=== PATIENT | male | born 1990 | race Caucasian/White ===

== ENCOUNTER 2018-08-02 08:20 | Inpatient (IN) | payer MEDICAID ==
[~2018-08-02] VITALS: Ht 167.6 cm; Wt 65.8 kg
[2018-08-02] MEDS ORDERED: SODIUM CHLORIDE 0.9% 1,000 ML IV ONE (08:46)
[2018-08-02] MEDS ORDERED: ACETAMINOPHEN 325MG TABLET PO ONE (09:00)
[2018-08-02 09:17] LABS: CHLORIDE 97 mEq/L (98-107)
[2018-08-02 09:18] LABS: BASOPHILS % 1.5 % (0.0-2.0); HEMOGLOBIN. 8.8 g/dL (14.0-18.0); LYMPHOCYTES % 11.9 % (20.0-50.0); MEAN CORPUSCULAR HEMOGLOBIN 21.6 pg (28.0-32.0); MEAN CORPUSCULAR VOLUME 69.2 fL (80.0-94.0); MEAN PLATELET VOLUME 8.9 fl (7.4-10.4); MONOCYTES % 11.3 % (2.0-8.0); NEUTROPHILS % 74.3 % (40.0-76.0); PLATELET 68 x1000/uL (130-400); RED BLOOD CELL COUNT 4.05 mill/uL (4.7-6.1); RED CELL DISTRIBUTION WIDTH 17.5 % (11.6-14.6)
[2018-08-02 09:21] LABS: ETHANOL BLOOD < 10 mg/dL
[2018-08-02 09:53] LABS: PLATELET ESTIMATE DECREASED
[2018-08-02 11:56] LABS: CLARITY URINE CLOUDY (CLEAR); COLOR URINE YELLOW (YELLOW); KETONES URINE NEGATIVE (NEGATIVE); LEUKOCYTE ESTERASE URINE NEGATIVE (NEGATIVE); NITRITE URINE NEGATIVE (NEGATIVE); OCCULT BLOOD URINE NEGATIVE (NEGATIVE); PH URINE 7.5 (4.5-8.0); PROTEIN URINE TRACE (NEGATIVE); SPECIFIC GRAVITY URINE 1.006 (1.005-1.030)
[2018-08-02 12:17] LABS: *AMPHETAMINES SCREEN URINE NEGATIVE (NEGATIVE); *BARBITURATES SCREEN URINE NEGATIVE (NEGATIVE); *BENZODIAZEPINES SCREEN URINE NEGATIVE (NEGATIVE); *COCAINE SCREEN URINE NEGATIVE (NEGATIVE)
[2018-08-02 12:18] LABS: CANNABINOID URINE SCREEN NEGATIVE (NEGATIVE); METHADONE URINE SCREEN NEGATIVE (NEGATIVE); OPIATES URINE SCREEN NEGATIVE (NEGATIVE); PHENCYCLIDINE URINE SCREEN NEGATIVE (NEGATIVE)
[2018-08-02 14:45] VITALS: BP 93/57
[2018-08-02 15:00] VITALS: BP 98/45
[2018-08-02] MEDS ORDERED: LORAZEPAM 2MG/ML CPJ IV NR (15:00)
[2018-08-02] MEDS ORDERED: DIPHENHYDRAMINE 50MG/ML VIAL IV PRN (15:15)
[2018-08-02] MEDS ORDERED: LORAZEPAM 2MG/ML CPJ IV ONE (15:15)
[2018-08-02] MEDS ORDERED: LORAZEPAM 2MG/ML CPJ IV PRN (15:15)
[2018-08-02] MEDS ORDERED: ONDANSETRON HCL 4MG/2ML INJ IV PRN (15:15)
[2018-08-02] MEDS ORDERED: CLONIDINE 0.1MG TABLET PO PRN (15:15)
[2018-08-02] MEDS ORDERED: ACETAMINOPHEN 325MG TABLET PO PRN (15:15)
[2018-08-02 15:58] VITALS: BP 112/64
[2018-08-02] MEDS ORDERED: MVI, ADULT NO.1 10 ML, FOLIC ACID 1 MG, THIAMINE HCL 100 MG in SODIUM CHLORIDE 0.9% 1,0... IV SCH ×4 (16:00)
[2018-08-02 20:00] VITALS: BP 114/66
[2018-08-02] MEDS: LEVETIRACETAM 500 MG in SODIUM CHLORIDE 0.9% 100 ML IV SCH (20:39)
[2018-08-02] MEDS: FAMOTIDINE 20MG/2ML VIAL IV SCH (20:40)
[2018-08-03] VITALS: BP 92/66
[2018-08-03] MEDS: SODIUM CHLORIDE 0.9% 1,000 ML IV SCH ×2 (01:09→11:33)
[2018-08-03 04:00] VITALS: BP 110/60
[2018-08-03 07:43] LABS: BASOPHILS % 1.7 % (0.0-2.0); EOSINOPHILS % 1.8 % (0.0-5.0); HEMATOCRIT. 26.3 % (42.0-52.0); HEMOGLOBIN. 8.2 g/dL (14.0-18.0); LYMPHOCYTES % 18.9 % (20.0-50.0); MEAN CORPUSCULAR HEMOGLOBIN 21.9 pg (28.0-32.0); MEAN CORPUSCULAR VOLUME 69.9 fL (80.0-94.0); MEAN PLATELET VOLUME 9.8 fl (7.4-10.4); MONOCYTES % 10.5 % (2.0-8.0); NEUTROPHILS % 67.1 % (40.0-76.0); PLATELET 68 x1000/uL (130-400); RED BLOOD CELL COUNT 3.76 mill/uL (4.7-6.1); RED CELL DISTRIBUTION WIDTH 17.2 % (11.6-14.6)
[2018-08-03 08:00] VITALS: BP 111/61
[2018-08-03 08:27] LABS: CHLORIDE 107 mEq/L (98-107)
[2018-08-03] MEDS: FAMOTIDINE 20MG/2ML VIAL IV SCH ×2 (08:46→20:49)
[2018-08-03] MEDS: LEVETIRACETAM 500 MG in SODIUM CHLORIDE 0.9% 100 ML IV SCH ×2 (08:46→20:49)
[2018-08-03 08:50] LABS: PHOSPHORUS 2.6 mg/dL (2.5-4.9)
[2018-08-03] MEDS ORDERED: POTASSIUM CHLORIDE 20MEQ TABLET SR PO SCH (09:15)
[2018-08-03 12:00] VITALS: BP_SYST 101; BP_SYST 2; BP_DIAS 43
[2018-08-03] MEDS ORDERED: POTASSIUM CHLORIDE 20MEQ TABLET SR PO NR (13:30)
[2018-08-03] MEDS: CHLORDIAZEPOXIDE 25MG CAPSULE PO SCH ×2 (14:31→21:02)
[2018-08-03] MEDS: LORAZEPAM 2MG/ML CPJ IV PRN ×2 (15:40→21:02)
[2018-08-03] MEDS ORDERED: DIPHENHYDRAMINE 50MG/ML VIAL IV NR (16:00)
[2018-08-03] MEDS ORDERED: HALOPERIDOL LACTATE 5MG/ML VIAL IM ONE (16:01)
[2018-08-03] MEDS ORDERED: DIPHENHYDRAMINE 50MG/ML VIAL ONE (16:02)
[2018-08-03] MEDS: HALOPERIDOL LACTATE 5MG/ML VIAL IM PRN ×2 (16:05→23:29)
[2018-08-03 20:00] VITALS: BP 102/68
[2018-08-04] VITALS (7 sets, daily range): BP systolic 103–117; BP diastolic 63–71
[2018-08-04] MEDS: LORAZEPAM 2MG/ML CPJ IV PRN ×3 (01:14→17:07)
[2018-08-04] MEDS: CHLORDIAZEPOXIDE 25MG CAPSULE PO SCH ×3 (05:41→20:10)
[2018-08-04] MEDS: FAMOTIDINE 20MG/2ML VIAL IV SCH ×2 (08:55→20:13)
[2018-08-04] MEDS: THIAMINE HCL 100MG TABLET PO SCH (08:55)
[2018-08-04] MEDS: LEVETIRACETAM 500 MG in SODIUM CHLORIDE 0.9% 100 ML IV SCH (08:55)
[2018-08-04] MEDS ORDERED: POTASSIUM CHLORIDE 20MEQ TABLET SR PO NR (16:30)
[2018-08-04] MEDS: LEVETIRACETAM 500MG/5ML CUP PO SCH (20:10)
[2018-08-04] MEDS: HALOPERIDOL LACTATE 5MG/ML VIAL IM PRN (23:46)
[2018-08-05] VITALS: BP 105/67
[2018-08-05] MEDS: LORAZEPAM 2MG/ML CPJ IV PRN ×2 (03:28→07:41)
[2018-08-05 04:00] VITALS: BP 129/71
[2018-08-05] MEDS: CHLORDIAZEPOXIDE 25MG CAPSULE PO SCH ×2 (06:12→14:24)
[2018-08-05] MEDS: HALOPERIDOL LACTATE 5MG/ML VIAL IM PRN (07:46)
[2018-08-05 08:00] VITALS: BP 121/81
[2018-08-05] MEDS: THIAMINE HCL 100MG TABLET PO SCH ×2 (09:00→14:24)
[2018-08-05] MEDS: FAMOTIDINE 20MG/2ML VIAL IV SCH (10:02)
[2018-08-05] MEDS: LEVETIRACETAM 500MG/5ML CUP PO SCH (10:51)
[2018-08-05] MEDS ORDERED: POTASSIUM CHLORIDE 20MEQ TABLET SR PO NR (15:45)
[2018-08-05 15:55] VITALS: BP 106/75
[2018-08-05 16:00] VITALS: BP 106/75
[2018-08-05] MEDS ORDERED: MAGNESIUM 1 G PREMIX 100 ML IV NR (18:00)
== END 2018-08-05 16:50 | disposition home or self-care (01) | DRG 241 ==
LOC: ER 08:20 → 8WST 13:17 → EDBEDREQ 13:19 → EDBEDREQTM 13:19 → ENRESERV 14:00
PROVIDERS: ADMIT Internal Medicine; ATTEND Internal Medicine
DX: K29.71 Gastritis, unspecified, with bleeding (principal); G92 Toxic encephalopathy; F10.231 Alcohol dependence with withdrawal delirium; D64.9 Anemia, unspecified; E87.6 Hypokalemia; R55 Syncope and collapse
CPT/HCPCS: 36415; 80051; 80305; 80320; 82962; 83735; 84100; 93005; 96374; 96375; 99285; C1893; J1200; J1630; J1953; J2060; J3411; J3475; J3490; J7030; J7050; G0480